=== PATIENT | female | born 1990 | race American Indian/Alaskan Native ===

== ENCOUNTER 2019-06-07 18:38 | Emergency (ER) | payer SELFPAY ==
--- NOTE | 2019-06-07 19:48 | Event Note ---
ED Screening Note ED Screening Note: headache/vomiting/vag bleed sp ab early Nov; bleeding since then clinic follow up was ok pmh none psh none rx motrin prn no c/e/d This initial assessment/diagnostic orders/clinical plan/treatment(s) is/are subject to change based on patients health status, clinical progression and re- assessment by fellow clinical providers in the ED. Further treatment and workup at subsequent clinical providers discretion. Patient/guardian urged not to elope from the ED as their condition may be serious if not clinically assessed and managed. Initial orders include: labs /urine
[2019-06-07 20:41] LABS: Basophils # (Auto) 0.1 K/mm3 (0.0-0.1); Basophils % (Auto) 0.7 % (0.0-1.8); Eosinophils % (Auto) 0.6 % (0.0-4.3); Hematocrit 33.4 % (30.3-42.9); Hemoglobin 11.2 gm/dl (10.1-14.3); Lymphocytes # (Auto) 1.4 K/mm3 (1.2-5.4); Lymphocytes % (Auto) 17.5 % (13.4-35.0); Mean Corpuscular HGB Conc 34 % (30-34); Mean Corpuscular Volume 76 fl (79-97); Monocytes # (Auto) 0.7 K/mm3 (0.0-0.8); Monocytes % (Auto) 8.7 % (0.0-7.3); Platelet Count 312 K/mm3 (140-440); Red Blood Count 4.37 M/mm3 (3.65-5.03); Red Cell Distribution Width 15.1 % (13.2-15.2)
[2019-06-07 21:07] LABS: Alanine Aminotransferase 27 units/L (7-56); Albumin 4.4 g/dL (3.9-5); BUN/Creatinine Ratio 17; Blood Urea Nitrogen 10 mg/dL (7-17); Calcium 9.6 mg/dL (8.4-10.2); Hemolysis Index 11
[2019-06-07 21:50] LABS: HCG Qualitative,Urine Negative (Negative)
[2019-06-07 21:53] LABS: Bilirubin,Urine NEG (Negative); Blood,Urine MOD (Negative); Color,Urine Yellow (Yellow); Mucus,Urine 3+ /HPF; Protein,Urine <15 mg/dL mg/dL (Negative); Urobilinogen,Urine < 2.0 mg/dL (<2.0)
[2019-06-07] MEDS ORDERED: ONDANSETRON 4 MG/2 ML INJ IV ONE (23:49)
[2019-06-07] MEDS ORDERED: methylPREDNISolone Sod Succinate 125 MG/2 ML INJ IV ONE (23:49)
--- NOTE | 2019-06-07 23:53 | Emergency Department Report ---
ED General Adult HPI - General Chief complaint: Nausea/Vomiting/Diarrhea Stated complaint: MIGRAINE/VOMITING BLOOD Time Seen by Provider: 06/07/19 19:46 Source: patient Mode of arrival: Ambulatory Limitations: No Limitations - History of Present Illness Initial comments: Patient is a 28-year-old female that presents emergency room with complaints of headache, nausea vomiting, passing of blood clots per vagina. Patient states her headache started earlier today and is worsening.. Patient states she's had multiple bouts of nausea and vomiting. Patient states she's not held anything down today. Patient states 04/10/2019 she had a medication with mifepristone. Patient states she's had vaginal bleeding ever since and for the past 2 weeks she has been passing large clots. Patient states she has a history of migraines. Patient states her headache feels exactly like her migraines. Patient states it's worse with light and sound. Patient denies dysuria. Patient denies abdominal pain. She denies blood in her vomitus. Patient denies blood in her stool. Patient states she is Rh+, patient is a A1 -: Sudden Location: head Radiation: non-radiation Severity scale (0 -10): 8 Quality: stabbing Consistency: constant Improves with: rest Worsens with: other Associated Symptoms: headaches, nausea/vomiting, other. denies: confusion, chest pain, cough, diaphoresis, fever/chills, loss of appetite, malaise, rash, seizure, shortness of breath, syncope, weakness Treatments Prior to Arrival: NSAID - Related Data Previous Rx's Medication Instructions Recorded Last Taken Type Ondansetron [Zofran Odt] 4 mg PO Q6HR PRN #20 tab.rapdis 06/08/19 Unknown Rx methylPREDNISolone [Medrol 4MG 4 mg PO DAILY 6 Days #1 tab.ds.pk 06/08/19 Unk nown Rx DOSEPAK (21 tabs)] Allergies Allergy/AdvReac Type Severity Reaction Status Date / Time No Known Allergies Allergy Unverified 06/07/19 18:54 ED Review of Systems ROS: Stated complaint: MIGRAINE/VOMITING BLOOD Other details as noted in HPI Constitutional: denies: chills, fever Eyes: denies: eye pain, eye discharge, vision change ENT: denies: ear pain, throat pain Respiratory: denies: cough, shortness of breath, wheezing Cardiovascular: denies: chest pain, palpitations Endocrine: no symptoms reported Gastrointestinal: denies: abdominal pain, nausea, diarrhea Genitourinary: as per HPI, abnormal menses. denies: urgency, dysuria, discharge Musculoskeletal: denies: back pain, joint swelling, arthralgia Skin: denies: rash, lesions Neurological: headache. denies: weakness, paresthesias Psychiatric: denies: anxiety, depression Hematological/Lymphatic: denies: easy bleeding, easy bruising ED Past Medical Hx - Past Medical History Previous Medical History?: No - Surgical History Past Surgical History?: No - Family History Family history: no significant - Social History Smoking Status: Never Smoker Substance Use Type: None - Medications Home Medications: Home Medications Medication Instructions Recorded Confirmed Last Taken Type Ondansetron [Zofran Odt] 4 mg PO Q6HR PRN #20 tab.rapdis 06/08/19 Unknown Rx methylPREDNISolone [Medrol 4MG 4 mg PO DAILY 6 Days #1 tab.ds.pk 06/08/19 Unknown Rx DOSEPAK (21 tabs)] ED Physical Exam - General Limitations: No Limitations General appearance: alert, in no apparent distress - Head Head exam: Present: atraumatic, normocephalic - Eye Eye exam: Present: normal appearance, PERRL, EOMI Pupils: Present: normal accommodation - ENT ENT exam: Present: mucous membranes moist - Neck Neck exam: Present: normal inspection - Respiratory Respiratory exam: Present: normal lung sounds bilaterally. Absent: respiratory distress, wheezes, rales - Cardiovascular Cardiovascular Exam: Present: regular rate, normal rhythm. Absent: systolic murmur, diastolic murmur, rubs, gallop - GI/Abdominal GI/Abdominal exam: Present: soft, normal bowel sounds. Absent: distended, tenderness, guarding - Rectal Rectal exam: Present: deferred - Extremities Exam Extremities exam: Present: normal inspection - Back Exam Back exam: Present: normal inspection - Neurological Exam Neurological exam: Present: alert, oriented X3 - Psychiatric Psychiatric exam: Present: normal affect, normal mood - Skin Skin exam: Present: warm, dry, intact, normal color. Absent: rash ED Course Vital Signs 06/07/19 19:49 Temperature 98.3 F Pulse Rate 75 Respiratory 18 Rate Blood Pressure 122/88 O2 Sat by Pulse 98 Oximetry - Reevaluation(s) Reevaluation #1: Patient states she is feeling better. Patient states her nausea is resolved. Patient states her headache is improved. I discussed all results with patient. I discussed plan of care with patient. Patient agrees with plan of care. Patient is stable for discharge. Patient will be discharged home. Patient given discharge instructions. Patient voiced understanding of discharge instructions. 06/08/19 02:04 ED Medical Decision Making - Lab Data Result diagrams: 06/07/19 20:08 06/07/19 20:08 - Radiology Data Radiology results: report reviewed EXAMINATION: Obstetrical Ultrasound INDICATION: Vaginal bleeding. History of recent . COMPARISON: None FINDINGS: The uterus is within normal limits in size measuring 9.3 x 4.9 cm. There is a mixed echogenic region within the endometrial canal with an approximate maximum thickness of 1 cm. This region demonstrates moderate associated vascularity. No pole is definitively identified. No cardiac activity is identified. The bilateral adnexal regions appear within normal limits. There is a very trace amount of free pelvic fluid. IMPRESSION: 1. Mixed echogenic region within the endometrial canal with associated vascularity. This is indeterminate on the basis of today's study but could potentially represent findings of failed or failing versus too early to visualize. Therefore, close clinical, laboratory and sonographic follow-up is recommended - Medical Decision Making Patient is a 28-year-old female that presents emergency room with complaints of vaginal bleeding and passing of clots per vagina and migraine, headache and nausea vomiting. Patient's vaginal bleeding is been going on since March 2019 and status post medication . Patient's headache consistent with a migraine. Patient given steroids and Zofran. Patient's nausea resolved and patient tolerated by mouth challenge. Patient's headache improved while in the ER. Patient had an ultrasound done which shows an absent uterus and no signs of intrauterine . And no signs of retained products of conception. Patient also had labs done. Patient's labs were unremarkable. - Differential Diagnosis retained products of conception, complication with abort, vaginal bleed, kuhn Critical care attestation.: If time is entered above; I have spent that time in minutes in the direct care of this critically ill patient, excluding procedure time. ED Disposition Clinical Impression: Vaginal bleeding, complicated with hemorrhage Headache Qualifiers: Headache type: unspecified Headache chronicity pattern: acute headache Intractability: not intractable Qualified Code(s): R51 - Headache Migraine Qualifiers: Migraine type: with aura Status migrainosus presence: with status migrainosus Intractability: not intractable Qualified Code(s): G43.101 - Migraine with aura, not intractable, with status migrainosus Nausea & vomiting Qualifiers: Vomiting type: unspecified Vomiting Intractability: non-intractable Qualified Code(s): R11.2 - Nausea with vomiting, unspecified Disposition: TO HOME OR SELFCARE Is pt being admited?: No Does the pt Need Aspirin: No Condition: Stable Instructions: Ibuprofen (By mouth), Menstruation (ED), Migraine Headache (ED), Acute Headache (ED) Additional Instructions: Patient to follow-up with primary care in 2-3 days. Patient to follow-up with [facility] in 2-3 days. Patient to return to ER if condition worsens. Patient to rest. Patient to increase water. Patient to take meds as directed. Patient's take Tylenol or ibuprofen when necessary for pain. Prescriptions: methylPREDNISolone [Medrol 4MG DOSEPAK (21 tabs)] 4 mg PO DAILY 6 Days #1 tab.ds.pk Ondansetron [Zofran Odt] 4 mg PO Q6HR PRN #20 tab.rapdis PRN Reason: Nausea And Vomiting Referrals: PRIMARY CARE, [Primary Care Provider] - 2-3 Days LYDIA DO MD [Staff Physician] - 2-3 Days Time of Disposition: 02:09
--- NOTE | 2019-06-08 01:25 | Ultrasound Report ---
EXAMINATION: Obstetrical Ultrasound INDICATION: Vaginal bleeding. History of recent . COMPARISON: None FINDINGS: The uterus is within normal limits in size measuring 9.3 x 4.9 cm. There is a mixed echogenic region within the endometrial canal with an approximate maximum thickness of 1 cm. This region demonstrates moderate associated vascularity. No pole is definitively identified. No cardiac activity is identified. The bilateral adnexal regions appear within normal limits. There is a very trace amount of free pelvi c fluid. IMPRESSION: 1. Mixed echogenic region within the endometrial canal with associated vascularity. This is indeterm inate on the basis of today's study but could potentially represent findings of failed or failing pre gnancy versus too early to visualize. Therefore, close clinical, laboratory and sonographic follow-up is recommended. Signer Name: Yu Melendez MD Signed: 06/08/2019 1:21 AM Workstation Name: [id number]
[2019-06-08 02:29] VITALS: BP 133/64
== END 2019-06-08 02:29 | disposition home or self-care (01) ==
LOC: ED 18:38
DX: G43.909 Migraine, unspecified, not intractable, without status migrainosus (principal); N93.9 Abnormal uterine and vaginal bleeding, unspecified; Z79.899 Other long term (current) drug therapy
CPT/HCPCS: 36415; 76817; 80053; 81001; 81025; 85025; 96374; 96375; 99284; J2405; J2930